=== PATIENT | female | born 1980 | race Two or more races ===

== ENCOUNTER 2020-08-30 04:14 | Day surgery (SDC) | payer OTHER ==
[2020-08-29 11:23] VITALS: BMI 28.4
[~2020-08-30 04:14] MED LIST: BUPIVACAINE HCL/PF 0.5% (5MG/ML) 10 ML VIAL NR ONE
[2020-08-30] MEDS ORDERED: MIDAZOLAM HCL 2 MG/2 ML SINGLE DOSE VIAL ONE (09:15)
[2020-08-30] MEDS ORDERED: ROCURONIUM BROMIDE 100 MG/10 ML VIAL ONE (09:15)
[2020-08-30] MEDS ORDERED: PROPOFOL 20 ML ONE ×2 (09:15)
[2020-08-30] MEDS ORDERED: ONDANSETRON 4 MG/2 ML VIAL IVPUSH PRN (09:33)
[2020-08-30] MEDS ORDERED: oxyCODONE HCL 5 MG TABLET PO PRN (09:33)
[2020-08-30] MEDS ORDERED: LACTATED RINGERS SOLUTION 1,000 ML IV SCH (09:45)
[2020-08-30] MEDS ORDERED: BUPIVACAINE HCL/PF 0.5% (5MG/ML) 10 ML VIAL NR ONE (10:35)
[2020-08-30] MEDS ORDERED: NEOSTIGMINE METHYLSULFATE 0.5 MG/ML - 10 ML MDV ONE (10:39)
[2020-08-30 13:03] VITALS: BP 127/78; PULSE 65; TEMP 97.6
== END 2020-08-30 13:05 | disposition home or self-care (01) ==
LOC: JASU-SURG 04:14 → EDSTATUS 09:00 → JASU-SURG 13:05
PROVIDERS: ATTEND Family Medicine
PROC: 0U574ZZ Destruction of Bilateral Fallopian Tubes, Percutaneous Endoscopic Approach (ICD-10-PCS; principal; 2020-08-30 09:00)
DX: Z30.2 Encounter for sterilization (principal)
CPT/HCPCS: 81025; 94760